=== PATIENT | female | born 1945 | race Caucasian/White ===

== ENCOUNTER → 2016-05-30 | Outpatient (CLI) | payer MEDICARE | END | disposition home or self-care (01) | LOC: CFH 13:46 | PROVIDERS: ATTEND Nurse Practitioner Family | DX: Z12.31 Encounter for screening mammogram for malignant neoplasm of breast (principal); M85.88 Other specified disorders of bone density and structure, other site; Q78.2 Osteopetrosis; J44.9 Chronic obstructive pulmonary disease, unspecified; J98.4 Other disorders of lung | CPT/HCPCS: 71020; 77080; G0202 ==

== ENCOUNTER → 2016-06-13 | Outpatient (CLI) | payer MEDICARE | END | disposition home or self-care (01) | LOC: CFH 13:10 | PROVIDERS: ATTEND Nurse Practitioner Family | DX: N60.02 Solitary cyst of left breast (principal) | CPT/HCPCS: 76641; G0206 ==

== ENCOUNTER → 2017-07-17 | Outpatient (CLI) | payer MEDICARE | END | disposition home or self-care (01) | LOC: CFH 14:18 | PROVIDERS: ATTEND Nurse Practitioner | DX: Z12.31 Encounter for screening mammogram for malignant neoplasm of breast (principal); Z12.2 Encounter for screening for malignant neoplasm of respiratory organs; F17.210 Nicotine dependence, cigarettes, uncomplicated | CPT/HCPCS: 77063; 77067; G0297 ==

== ENCOUNTER 2018-07-04 09:41 | Emergency (ER) | payer MEDICARE ==
[~2018-07-04] VITALS: Ht 160 cm; Wt 55.5 kg
[2018-07-04] MEDS ORDERED: ASPIRIN 81 MG TABLET CHEW PO ONE (10:00)
[2018-07-04] MEDS ORDERED: ASPIRIN 81 MG TABLET CHEW ONE (10:03)
--- NOTE | 2018-07-04 10:19 | NUR ---
RIGHT FLANK AND LOWER QUADRANT PAIN. PAIN BETWEEN SHOULDER BLADES AND LOWER BACK STARTED DEVELOPING FRIDAY
[2018-07-04 10:28] LABS: CULTURE INDICATED? YES; MICROSCOPIC AUTO
[2018-07-04] MEDS ORDERED: HYDROcodone/APAP 5/325 TABLET ONE (10:35)
--- NOTE | 2018-07-04 10:41 | NUR ---
MEDICATED PER ORDERS AND TO XRAY VIA GURNEY
[2018-07-04 10:42] LABS: BASOPHILS # (AUTO) 0.04 x10^3/uL (0-0.1); BASOPHILS % (AUTO) 1 % (0-1); EOSINOPHILS # (AUTO) 0.05 x10^3/uL (0-0.4); EOSINOPHILS % (AUTO) 1 % (1-7); LYMPHOCYTES # (AUTO) 1.71 x10^3/uL (1-3.4); LYMPHOCYTES % (AUTO) 24 % (22-44); MD NO; MEAN CORPUSCULAR HEMOGLOBIN 32.1 pg (27.0-34.8); MEAN CORPUSCULAR HGB CONC 32.8 g/dL (32.4-35.8); MEAN CORPUSCULAR VOLUME 97.9 fL (80-100); MEAN PLATELET VOLUME 8.6 fL (7.4-10.4); MONOCYTES # (AUTO) 0.34 x10^3/uL (0.2-0.8); MONOCYTES % (AUTO) 5 % (2-9); NEUTROPHILS # (AUTO) 4.95 x10^3/uL (1.8-6.8); NEUTROPHILS % (AUTO) 70 % (42-75); PLATELET COUNT 344 x10^3/uL (130-400); RED BLOOD COUNT 4.69 x10^6/uL (3.82-5.3)
[2018-07-04 10:49] LABS: ALANINE AMINOTRANSFERASE 19 U/L (12-78); ANION GAP 6 mmol/L (5-15); CALCIUM 9.1 mg/dL (8.5-10.1); CHLORIDE 109 mmol/L (98-107); CREATININE 0.85 mg/dL (0.55-1.02)
[2018-07-04 10:53] LABS: ALKALINE PHOSPHATASE 66 U/L (45-117); BILIRUBIN,TOTAL 0.4 mg/dL (0.2-1.0); TOTAL PROTEIN 7.3 g/dL (6.4-8.2); TROPONIN I < 0.015 ng/mL (0.000-0.045)
[2018-07-04] MEDS ORDERED: HYDROcodone/APAP 5/325 TABLET PO ONE (11:00)
--- NOTE | 2018-07-04 11:10 | NUR ---
TO CT VIA [facility]
[2018-07-04] MEDS ORDERED: OMNIPAQUE 350 MG/ML, 100ML BOTTLE ONE (11:30)
[2018-07-04 11:53] VITALS: BP 146/49
--- NOTE | 2018-07-04 12:26 | NUR ---
DISCUSSING TEST RESULTS WITH PT
== END 2018-07-04 12:35 | disposition home or self-care (01) ==
LOC: ED 11:40
DX: S39.012A Strain of muscle, fascia and tendon of lower back, initial encounter (principal); M51.36 Other intervertebral disc degeneration, lumbar region; I10 Essential (primary) hypertension; X58.XXXA Exposure to other specified factors, initial encounter; Y93.89 Activity, other specified; Y92.89 Other specified places as the place of occurrence of the external cause; Y99.8 Other external cause status
CPT/HCPCS: 36415; 71046; 72110; 74177; 80053; 81001; 84484; 85025; 87086; 93005; 99284; Q9967

== ENCOUNTER 2019-03-24 10:47 | Day surgery (SDC) | payer MEDICARE ==
[~2019-03-24] VITALS: Ht 161.3 cm; Wt 51.8 kg
[2019-03-24] MEDS ORDERED: LIDOCAINE 1%, 20ML ONE (11:30)
== END 2019-03-24 13:00 | disposition home or self-care (01) ==
LOC: CACL 10:47
PROVIDERS: ATTEND Internal Medicine Cardiovascular Disease
DX: R55 Syncope and collapse (principal); R42 Dizziness and giddiness; I10 Essential (primary) hypertension; E78.2 Mixed hyperlipidemia; F17.210 Nicotine dependence, cigarettes, uncomplicated; Z79.82 Long term (current) use of aspirin; Z79.899 Other long term (current) drug therapy; Z88.1 Allergy status to other antibiotic agents; Z82.49 Family history of ischemic heart disease and other diseases of the circulatory system
CPT/HCPCS: 33285; C1764